=== PATIENT | male | born 2000 | race African-American/Black ===

== ENCOUNTER 2021-02-16 13:00 | Emergency (ER) | payer MEDICAID ==
[~2021-02-16] VITALS: Ht 160 cm; Wt 66.2 kg
[2021-02-16 13:11] VITALS: BP 120/64
[2021-02-16] MEDS ORDERED: NOVOLOG100 UNIT/1 SUBQ (13:17)
[2021-02-16] MEDS ORDERED: LANTUS SUBQ (13:17)
[2021-02-16] MEDS ORDERED: FLOVENT HFA 4444 MCG INH (13:18)
[2021-02-16] MEDS ORDERED: PROAIR HFA8.5 GM INH (13:18)
[2021-02-16] MEDS ORDERED: APAP W/CODEINE1 TA2 PO (16:11)
== END 2021-02-16 16:22 | disposition home or self-care (01) ==
LOC: M.ERS 13:00
DX: S00.01XA Abrasion of scalp, initial encounter (principal); E10.9 Type 1 diabetes mellitus without complications; J45.909 Unspecified asthma, uncomplicated; F17.210 Nicotine dependence, cigarettes, uncomplicated; Z79.4 Long term (current) use of insulin; Z79.899 Other long term (current) drug therapy; W22.8XXA Striking against or struck by other objects, initial encounter; Y93.89 Activity, other specified; Y92.89 Other specified places as the place of occurrence of the external cause; Y99.8 Other external cause status